=== PATIENT | male | born 1985 | race Caucasian/White ===

== ENCOUNTER 2016-09-25 19:20 | Emergency (ER) | payer OTHER ==
[~2016-09-25] VITALS: Ht 172.7 cm; Wt 83.9 kg
[~2016-09-25 19:20] MED LIST: CEPH500C PO
--- OUTSIDE RECORDS SUMMARY | 2016-09-25 19:25 | XMS REPORT | Continuity of Care Document ---
Author Author [facility] Organization [facility] Address Unknown Phone Unavailable Allergies Active Description Code Type Severity Reaction Onset Reported/Identified Relationship to Patient Clinical Status Yes No Known Drug Allergies [id number] Drug Allergy Unknown N/ A 05/12/2013 Medications Problems Date Dx Coded Attending Type Code Diagnosis Diagnosed By 05/12/2013 SONJA OLVERA Ot 883.0 05/12/2013 SONJA OLVERA Ot E000.8 05/12/2013 SONJA OLVERA Ot E015.0 05/12/2013 SONJA OLVERA Ot E849.0 05/12/2013 SONJA OLVERA L Ot E920.3 05/12/2013 SONJA OLVERA Ot V06.1 11/04/2014 BENJI BUSTSO MD R Ot 780.79 05/05/2015 BENJI BUSTOS MD R Ot 780.79 Procedures Results Encounters ACCT No. Visit Date/Time Discharge Status Pt. Type Provider Facility Loc./Unit Complaint [id number] 11/05/2014 01:46:00 2014 23:59:59 CLS Preadmit BENJI BUSTOS MD [facility] LAB [id number] 11/04/2014 15:10:00 2014 23:59:59 CLS Outpatient BENJI BUSTOS MD [facility] LAB [id number] 11/04/2014 15:15:00 2014 00:01:00 DIS Outpatient BENJI BUSTOS MD [facility] LAB [id number] 05/12/2013 17:41:00 2013 19:43:00 DIS Emergency SONJA OLVERA [facility] ER
--- NOTE | 2016-09-25 20:12 | ED Upper Extremity ---
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 Tetanus is up-to-date. Onset: just prior to arrival Severity: moderate Pain/Injury Location: left 4th finger Modifying Factors: Worse With Movement Allergies and Home Medications Allergies Coded Allergies: No Known Drug Allergies (Unverified , 05/12/13) Home Medications Cephalexin Monohydrate 500 Mg Capsule, 1 EACH PO TID, #15 Ref 0 Prescribed by: SONJA GREGORY on 05/12/13 1905 Constitutional: see HPI EENTM: see HPI Respiratory: no symptoms reported Cardiovascular: no symptoms reported Genitourinary: no symptoms reported Musculoskeletal: see HPI Skin: see HPI Psychiatric/Neurological: No Symptoms Reported Past Bapmqjk-Fkmsum-Vqmazo Hx Patient Social History Recent Foreign Travel: No Contact w/Someone Who Travel: No Immunizations Up To Date Tetanus Booster (TDap): Less than 5yrs Cancer Cancer: Testicular Physical Exam Vital Signs Vital Sign - Last 12Hours 09/25/16 20:05 Temp 97.6 Pulse 88 Resp 20 B/P (MAP) 150/103 Pulse Ox 98 O2 Delivery Room Air Capillary Refill : General Appearance: WD/WN, no apparent distress HEENT: PERRL/EOMI, normal ENT inspection Neck: non-tender, full range of motion Respiratory: no respiratory distress, no accessory muscle use Gastrointestinal: normal bowel sounds, non tender, soft Shoulder: normal inspection, non-tender Elbow/Forearm: normal inspection, Right Wrist: Yes normal inspection, Yes non-tender Hand: normal inspection, Left, laceration Neurologic/Psychiatric: alert, normal mood/affect, oriented x 3 Skin: normal color, warm/dry, other (there is a 1 centimeter laceration to the ulnar side of the right ring finger over the middle phalanx. He remains neurovascularly intact distal to this with full flexion and extension and distal sensation.) Laceration Repair : Wound Location: Upper Extremities Wound Length (cm): 1 Wound's Depth, Shape: sub Q Wound Explored: clean Anesthesia: 1% Lidocaine Suture Size: 5-0 Number of Sutures: 4 Layer Closure?: 1 Number Deep Layer Sutures: 0 Progress Locally anesthetized with 2 mL of 1 percent lidocaine without epinephrine. Wound then scrubbed with chlorhexidine/saline solution and irrigated with the same. Wound then closed with 4 simple interrupted sutures size 5-0 Prolene. Progress/Results/Core Measures Results/Orders My Orders Orders - KARYNA BENSON APRN Lidocaine 2% Injection 20 Ml (Xylocaine (09/25/16 20:15) Medications Given in ED Current Medications Medications Dose Ordered Sig/Concepción Route Start Time Stop Time Status Last Admin Dose Admin Lidocaine HCl 2 ml ONCE ONCE INJ 09/25/16 20:15 09/25/16 20:16 DC 09/25/16 20:36 2 ML Vital Signs/I&O Vital Sign - Last 12Hours 09/25/16 20:05 Temp 97.6 Pulse 88 Resp 20 B/P (MAP) 150/103 Pulse Ox 98 O2 Delivery Room Air Departure Impression Impression: Primary Impression: Finger laceration Departure-Patient Inst. Decision time for Depature: 20:42 Referrals: BENJI BUSTOS MD (PCP/Family) Primary Care Physician Patient Instructions: Laceration Repair With Stitches (DC) Add. Discharge Instructions: 1. Return to ER to have the stitches removed in 10 days 2. Return to ER before then for any sign of infection such as redness swelling or any other concerns 3. You may wash her hands are water to run over them starting tomorrow but do not soak them in water such as a hot tub, swimming pool, bathtub until the stitches have been removed. KARYNA BENSON APRN Sep 25, 2016 20:12
[2016-09-25] MEDS ORDERED: LIDOCAINE 2% 20 ML (XYLOCAINE) VIAL INJ ONE (20:15)
[2016-09-25 20:50] VITALS: BP 150/103
== END 2016-09-25 20:50 | disposition home or self-care (01) ==
LOC: EDUNIT# 19:20 → ER 19:21
DX: S61.215A Laceration without foreign body of left ring finger without damage to nail, initial encounter (principal); W29.8XXA Contact with other powered hand tools and household machinery, initial encounter; Y92.009 Unspecified place in unspecified non-institutional (private) residence as the place of occurrence of the external cause

== ENCOUNTER 2018-11-27 20:44 | Emergency (ER) | payer OTHER ==
[~2018-11-27] VITALS: Ht 172 cm; Wt 90.7 kg
--- NOTE | 2018-11-27 21:07 | ED Integumentary General ---
General Chief Complaint: Skin/Wound Problems Stated Complaint: RASH Nursing Triage Note: Patient ambulatory to [facility]2 with family member with complaint of two small red spots on left lower anterior leg. Patient states this began yesterday and does not recall injuring it or recieving any insect stings on it. He decribes it as itchy. There is no swelling or drainage to it. Source: patient Exam Limitations: no limitations History of Present Illness Date Seen by Provider: Nov 27, 2018 Time Seen by Provider: 21:05 Initial Comments To ER with 2 reddened areas to the anterior mid lower leg on the left. This been present for 2 days, itching initially shar his attention to this, he didn't see or feel anything bite him. He has a purplish color to it that he noticed today that radiates some concern. He states it is itchy but not painful. Timing/Duration: just prior to arrival Severity: moderate Location: extremities Associated Symptoms: denies symptoms Allergies and Home Medications Allergies Coded Allergies: No Known Drug Allergies (Unverified , 05/12/13) Home Medications Cephalexin Monohydrate 500 Mg Capsule, 1 EACH PO TID Prescribed by: SONJA GREGORY on 05/12/13 [id number] Patient Home Medication List Home Medication List Reviewed: Yes Review of Systems Review of Systems Constitutional: see HPI EENTM: see HPI Respiratory: no symptoms reported Cardiovascular: no symptoms reported Genitourinary: no symptoms reported Musculoskeletal: no symptoms reported Skin: see HPI Psychiatric/Neurological: No Symptoms Reported Endocrine: No Symptoms Reported Past Nxdhqrh-Gwvjzs-Firnur Hx Patient Social History Type Used: Cigarettes 2nd Hand Smoke Exposure: No Recent Foreign Travel: No Contact w/Someone Who Travel: No Recent Infectious Disease Expo: No Recent Hopitalizations: No Immunizations Up To Date Tetanus Booster (TDap): Less than 5yrs Seasonal Allergies Seasonal Allergies: No Past Medical History Surgeries: Yes (TESTICULAR CA) Respiratory: No Cardiac: No Neurological: No Genitourinary: No Gastrointestinal: No Musculoskeletal: No Endocrine: No HEENT: No Cancer: Yes Testicular Psychosocial: No Integumentary: No Blood Disorders: No Physical Exam Vital Signs Vital Signs - First Documented 11/27/18 20:47 Temp 35.7 Pulse 85 Resp 16 B/P (MAP) 123/91 (102) Pulse Ox 98 O2 Delivery Room Air Capillary Refill : Less Than 3 Seconds General Appearance: WD/WN, no apparent distress HEENT: PERRL/EOMI, normal ENT inspection Neck: non-tender, full range of motion Respiratory: no respiratory distress, no accessory muscle use Extremities: normal range of motion, non-tender Neurologic/Psychiatric: alert, normal mood/affect, oriented x 3 Skin: normal color, warm/dry Skin Problem Location: other (to separate 1 to 1-1/2 cm circular areas of purpura nonblanching purplish erythema to the anterior lower leg slightly elevated. There is no central punctum. There is no surrounding cellulitis these are well demarcated.) Procedures/Interventions Suture Size: 5-0 Progress/Results/Core Measures Results/Orders My Orders Orders - KARYNA BENSON APRN Triamcinolone 0.1% Cream 15 Gm (Kenalog (11/28/18 09:00) Vital Signs/I&O 11/27/18 20:47 Temp 35.7 Pulse 85 Resp 16 B/P (MAP) 123/91 (102) Pulse Ox 98 O2 Delivery Room Air Blood Pressure Mean: 102 Departure Communication (Admissions) He has no other symptoms such as nausea vomiting joint pains muscle aches fatigue or malaise. Impression Primary Impression: Rash and nonspecific skin eruption Disposition: 01 HOME, SELF-CARE Condition: Stable Departure-Patient Inst. Decision time for Depature: 21:06 Referrals: BENJI BUSTOS MD (PCP/Family) Primary Care Physician PORTER SINGH MD Patient Instructions: Skin Rash Add. Discharge Instructions: apply steroids topically twice daily for 3 days. Return to Er for any concerns. KARYNA BENSON APRN Nov 27, 2018 21:07
[2018-11-27] MEDS ORDERED: TRIAMCINOLONE 0.1% CR (KENALOG) 15 GM TUBE ONE (21:11)
[2018-11-27 21:19] VITALS: BP 123/91
[2018-11-28] MEDS ORDERED: TRIAMCINOLONE 0.1% CR (KENALOG) 15 GM TUBE TOP SCH (09:00)
== END 2018-11-27 21:21 | disposition home or self-care (01) ==
LOC: EDUNIT# 20:44 → ER 20:45
DX: R21 Rash and other nonspecific skin eruption (principal); Z85.47 Personal history of malignant neoplasm of testis
CPT/HCPCS: 99282